=== PATIENT | female | born 1985 | race Caucasian/White ===

== ENCOUNTER 2018-02-24 14:32 | Emergency (ER) | payer SELFPAY ==
[2018-02-24 14:55] VITALS: PULSE 68; RESP 18; TEMP 97.7; O2SAT 100
--- NOTE | 2018-02-24 15:16 | ED PDOC ---
HPI: CCC, URI, Sore Throat Time Seen by Provider: 02/24/18 14:57 Chief Complaint (Nursing): ENT Problem Chief Complaint (Provider): Right eye redness, drainage History Per: Patient History/Exam Limitations: no limitations Have you had recent travel within the past 21 days to any of the following countries: [place], [place], [place] or [place]?: No Onset/Duration Of Symptoms: Days Current Symptoms Are (Timing): Still Present Additional Complaint(s): 32 yo female with no medical problems presents with redness and drainage of the right eye. Pt states that she is concerned about pink eye because she is going on vacation. Pt states she had a sore throat for 2-3 days but it feels better today. No fever/chills. Past Medical History Reviewed: Historical Data, Nursing Documentation, Vital Signs Vital Signs: Last Vital Signs Temp 97.7 F 02/24/18 14:51 Pulse 68 02/24/18 14:51 Resp 18 02/24/18 14:51 BP Pulse Ox 100 02/24/18 14:51 - Medical History PMH: No Chronic Diseases - Surgical History Surgical History: No Surg Hx - Family History Family History: States: No Known Family Hx - Living Arrangements Living Arrangements: With Family - Social History Current smoker - smoking cessation education provided: No - Home Medications Home Medications: Ambulatory Orders Medication Instructions Recorded Loratadine [Claritin] 10 mg PO DAILY #14 tab 02/24/18 Polymyxin/Trimethoprim Sulfate 1 drop XX Q6H 10 Days bottle 02/24/18 [Polytrim Ophth Soln] - Allergies Allergies/Adverse Reactions: Allergies Allergy/AdvReac Type Severity Reaction Status Date / Time No Known Allergies Allergy Verified 02/24/18 14:50 Review of Systems ROS Statement: Except As Marked, All Systems Reviewed And Found Negative Constitutional: Negative for: Fever, Chills Eyes: Positive for: Redness Physical Exam - Reviewed Nursing Documentation Reviewed: Yes Vital Signs Reviewed: Yes - Physical Exam Appears: Positive for: Well, Non-toxic, No Acute Distress Head Exam: Positive for: ATRAUMATIC, NORMAL INSPECTION, NORMOCEPHALIC Skin: Positive for: Normal Color, Warm, DRY Eye Exam: Positive for: EOMI, PERRL, Conjunctival injection. Negative for: Normal appearance ENT: Positive for: Normal ENT Inspection Neck: Positive for: Normal, Painless ROM Cardiovascular/Chest: Positive for: Regular Rate, Rhythm Respiratory: Positive for: CNT, Normal Breath Sounds Back: Positive for: Normal Inspection Extremity: Positive for: Normal ROM Neurologic/Psych: Positive for: Alert, Oriented - ECG O2 Sat by Pulse Oximetry: 100 Disposition - Clinical Impression Clinical Impression: Conjunctivitis - Patient ED Disposition Is Patient to be Admitted: No Counseled Patient/Family Regarding: Diagnosis, Need For Followup, Rx Given - Disposition Disposition: Routine/Home Disposition Time: 15:19 Condition: GOOD Prescriptions: Loratadine [Claritin] 10 mg PO DAILY #14 tab Polymyxin/Trimethoprim Sulfate [Polytrim Ophth Soln] 1 drop XX Q6H 10 Days bottle Instructions: Conjunctivitis ([place])
[2018-02-24 15:20] VITALS: BP 110/73
== END 2018-02-24 15:48 | disposition home or self-care (01) ==
LOC: H.ER 14:32
DX: H10.9 Unspecified conjunctivitis (principal)

== ENCOUNTER 2018-02-24 21:37 | Emergency (ER) | payer SELFPAY ==
[2018-02-24 21:52] VITALS: RESP 18
[2018-02-25 00:12] VITALS: BP 119/96; PULSE 80; TEMP 98.4; O2SAT 100
--- NOTE | 2018-02-25 01:41 | ED PDOC ---
HPI: CCC, URI, Sore Throat Time Seen by Provider: 02/24/18 22:35 Chief Complaint (Nursing): ENT Problem Chief Complaint (Provider): ENT Problem History Per: Patient History/Exam Limitations: no limitations Onset/Duration Of Symptoms: Days (x1) Current Symptoms Are (Timing): Still Present Additional Complaint(s): 32 year old female presents to the emergency department with a complaint of sore throat when swallowing associated with a dry cough ongoing for 1 day. Patient was in ED earlier this morning for conjuntivitis and discharged with eye drops and Claritin. She denies any fever, chills or vomiting. PMD: none provided Past Medical History Reviewed: Historical Data, Nursing Documentation, Vital Signs Vital Signs: Last Vital Signs Temp 98.4 F 02/25/18 00:11 Pulse 80 02/25/18 00:11 Resp 18 02/25/18 00:11 BP 119/96 H 02/25/18 00:11 Pulse Ox 100 02/25/18 01:51 - Medical History PMH: No Chronic Diseases - Surgical History Surgical History: No Surg Hx - Family History Family History: States: Unknown Family Hx - Social History Current smoker - smoking cessation education provided: No Ex-Smoker (has not smoked in the last 12 months): No Alcohol: None Drugs: Denies - Home Medications Home Medications: Ambulatory Orders Medication Instructions Recorded Loratadine [Claritin] 10 mg PO DAILY #14 tab 02/24/18 Polymyxin/Trimethoprim Sulfate 1 drop XX Q6H 10 Days bottle 02/24/18 [Polytrim Ophth Soln] - Allergies Allergies/Adverse Reactions: Allergies Allergy/AdvReac Type Severity Reaction Status Date / Time No Known Allergies Allergy Verified 02/24/18 14:50 Review of Systems ROS Statement: Except As Marked, All Systems Reviewed And Found Negative Constitutional: Negative for: Fever, Chills Eyes: Positive for: Conjunctivae Inflammation ENT: Positive for: Throat Pain Respiratory: Positive for: Cough (dry) Gastrointestinal: Negative for: Vomiting Physical Exam - Reviewed Nursing Documentation Reviewed: Yes Vital Signs Reviewed: Yes - Physical Exam Appears: Positive for: No Acute Distress Head Exam: Positive for: ATRAUMATIC, NORMAL INSPECTION, NORMOCEPHALIC Skin: Positive for: Normal Color ENT: Positive for: TM Is/Are (nonbulging/nonerythematous bilaterally), Pharyngeal Erythema (slightly). Negative for: Tonsillar Exudate, Tonsillar Swelling Cardiovascular/Chest: Positive for: Regular Rate, Rhythm. Negative for: Murmur Respiratory: Positive for: Normal Breath Sounds. Negative for: Wheezing, Respiratory Distress Gastrointestinal/Abdominal: Positive for: Normal Exam, Soft. Negative for: Tenderness Extremity: Positive for: Normal ROM (upper/lower) Neurologic/Psych: Positive for: Alert (x3), Oriented. Negative for: Motor/ Sensory Deficits - ECG O2 Sat by Pulse Oximetry: 100 (RA) Pulse Ox Interpretation: Normal Medical Decision Making Medical Decision Making: Initial Impression: Throat pain Initial Plan: * Discussed with patient that symptoms are most likely related to seasonal allergies but will R/O strep infection. Time: 4 --Rapid strep: negative. Time: 00:03 --Upon provider reevaluation, patient is medically stable and requires no further treatment in the ED at this time. Patient will be discharged home with instructions to continue eye drops and antihistamine as prescribed. Counseling was provided and all questions were answered regarding diagnosis. There is agreement to discharge plan. Return if symptoms persist or worsen. Clinical Impression: Throat pain; Viral syndrome Scribe Attestation: Documented by Kirsten Duarte, acting as a scribe for Darwin Crabtree MD. Provider Scribe Attestation: All medical record entries made by the Scribe were at my direction and personally dictated by me. I have reviewed the chart and agree that the record accurately reflects my personal performance of the history, physical exam, medical decision making, and the department course for this patient. I have also personally directed, reviewed, and agree with the discharge instructions and disposition. Disposition - Clinical Impression Clinical Impression: Throat pain, Viral syndrome - Patient ED Disposition Is Patient to be Admitted: No Counseled Patient/Family Regarding: Studies Performed, Diagnosis, Need For Followup - Disposition Referrals: [facility] [Outside] [facility] [Outside] Disposition: Routine/Home Disposition Time: 00:03 Condition: IMPROVED Additional Instructions: continue eye drops and claritin that was given to you earlier today. return to the ED with any worsening or concerning symptoms Instructions: Sore Throat, Adult (DC), Viral Syndrome (DC) Forms: [facility] (Macedonian)
== END 2018-02-25 00:21 | disposition home or self-care (01) ==
LOC: H.ER 21:37
DX: R07.0 Pain in throat (principal); B34.9 Viral infection, unspecified